=== PATIENT | female | born 1985 | race Hispanic/Latino ===

== ENCOUNTER 2025-07-09 09:13 | Outpatient (CLI) | payer OTHER | END 2025-07-09 09:14 | disposition home or self-care (01) | LOC: CSHULT 09:13 | PROVIDERS: ATTEND Student in an Organized Health Care Education/Training Program | DX: R74.8 Abnormal levels of other serum enzymes (principal); K76.0 Fatty (change of) liver, not elsewhere classified; K76.9 Liver disease, unspecified | CPT/HCPCS: 76705 ==